=== PATIENT | female | born 1970 | race Two or more races ===

== ENCOUNTER 2020-04-19 18:13 | Emergency (ER) | payer SELFPAY ==
[~2020-04-19] VITALS: Ht 142.2 cm; Wt 48.5 kg
[2020-04-19] MEDS ORDERED: ONDANSETRON ODT4 MG BC (18:43)
[2020-04-19] MEDS ORDERED: OMEPRAZOLE20 M2 ORAL (18:43)
--- NOTE | 2020-04-19 18:44 | Emergency Room Report ---
History of Present Illness General Chief Complaint: Abdominal Pain Source: Patient Present Illness HPI 49-year-old female with no prior medical history presents with mid epigastric abdominal pain x8 days. Patient states that she went to her primary care doctor 7 days ago and was diagnosed with H Pylori gastritis and told to come to the emergency department in case of worsening symptoms. She is currently taking clarithromycin, flagyl, and bismuth with mild relief of symptoms. She still has another 3 days of pills. She denies dysuria, hematuria, fever, chills, vomiting, diarrhea, melena, hematochezia, rash, trauma or any other symptoms. Last p.o. intake was this morning. Last BM was this morning. She states that she feels "acid" in her throat if she lays down too much. The patient's symptoms were gradual onset, severity was moderate, duration since 8 days. Quality: Aching Past medical history: Denies Past surgical history: Denies Smoking: Denies Alcohol use: Denies Drug use: Denies Review of systems: CONST: No fevers or chills, No night sweats PULMONARY: No productive cough, No shortness of breath CARDIAC: No chest pain, No palpitations GI: No vomiting, No diarrhea , No melena_or_BRBPR : No dysuria, No hematuria, No discharge NEURO: No new_focal_weakness_or_numbness, No confusion, No vision changes 14 point Review of Systems is otherwise negative except per HPI Physical Exam: GENERAL: Awake_alert_ nontoxic, no acute distress Spo2 98% on RA -normal EYES: Extraocular muscles are intact. Conjunctivae clear. Lids without swelling ENT: External nose and ear normal_in_appearance. Oropharynx clear. Head_atraumatic, Moist_oral_mucosa NECK: No JVD. No meningismus. No thyromegaly. Supple. Trachea midline RESP: Normal respiratory effort. Symmetric rise. No stridor. Clear_to_ausc ultation_No_rales_No_wheezes CARDIAC: Regular rate and regular rhytm. No_significant pedal edema. ABDOMEN: Soft. Nondistended. Mild midepigastric tenderness to deep. No pulsatile mass. Palpation_No_rebound_or_guarding. Negative Luna sign. No CVA tenderness to palpation. Negative Rovsing's. MSK: Normal muscle tone, without rigidity. Extremities without asymmetric deformity or swelling. SKIN: Warm and dry. No visible cyanosis or pallor NEUROLOGIC: Alert, oriented x3. Motor_and_sensation_grossly_intact. No truncal ataxia. Gait_normal Psych: Normal mood and affect, normal judgment and insight - COORDINATION OF CARE Case was discussed with: Patient Any labs and imaging that were ordered were interpreted as part of the medical decision making: Medical Decision Making/Plan: Differential diagnosis includes PUD, gastritis, pancreatitis,pancreatitis, gastroparesis, gastritis, peptic ulcer disease, among others. DOUBT cholecystitis, choledocholithiasis, hepatitis, small bowel obstruction, volvulus, AAA, atypical appendicitis Patient is well appearing with stable vital signs. Abdominal exam is non peritoneal with no guarding or rebound. Negative Luna sign. No masses. No CVA tenderness to palpation. Labs show normal CBC, CMP, trop. UA is negative for evidence of UTI. Screening EKG shows NSR with no signs of active ischemia. Bedside ultrasound was performed. No evidence of acute cholecystitis. Negative Luna sign. Right kidney shows small renal cysts. No hydronephrosis. No kidney stone. Left kidney is within normal limits. No intra-abdominal free fluid visualized. Suspect peptic ulcer disease 2/2 H Pylori which she has not finished her full course of abx for. Differential includes gastroparesis versus gastritis. ED intervention included Zofran and GI cocktail with relief of symptoms. Recommended dietary changes and to not take her medications on an empty stomach. She verbalizes her understanding. She will follow up with her primary care doctor after she has finished her 10-day course of triple therapy. The patients symptoms are not consistent with ACS (acute coronary syndrome), symptoms are not exertional, EKG without obvious ischemic change. The patient denies any bloody stool and has no pain out of proportion to exam, and no significant risk factors for mesenteric ischemia such as atrial fibrillation or severe PAD/PVD (peripheral arterial / vascular disease), thus definitive workup to rule out mesenteric ischemia was not pursued. Patient is afebrile, without any significant tenderness in the RUQ, and a negative [place] sign. The patients presentation does not appear to be consistent with acute cholecystitis and thus definitive imaging to rule it out was not pursued. The patient has no significant risk factors for AAA (abdominal aortic aneurysm) such as age over 50 with history of hypertension, connective tissue disorder, or 1st degree relative with AAA. the patient has normal dorsalis pedis pulses, no radiation of pain to the back, and no pulsatile mass felt on exam. The patients profile was overall low risk for AAA and definitive workup was not pursued. Pertinent results reviewed with the patient. I educated the patient on the current treatment plan including the risks, benefits, and alternatives. I also discussed the extent and limitations of the current evaluation. The patient expressed understanding and agreement with plan. I recommended PMD follow-up within 1-2 days. Also advised that the patient return to the Emergency Department as soon as possible if they experience any new, persistent, or worsening symptoms. 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 pylori infection Peptic ulcer disease EKG Diagnostic Results Troponin ordered: Yes ADELITA Scribe Text 12-lead EKG (interpreted by me) Time: Normal sinus rhythm. Short NC interval.1854 Indication: Rhythm analysis Tracing visualized and Interpreted by me. Rhythm: Normal sinus rhythm Rate: 92 bpm QTc: 450 Morphology: No_significant_ST_elevations_or_depressions, No STEMI Impression: Normal_sinus_rhythm_without_significant_abnormality. Short NC interval Rhythm Strip Diag. Results Rhythm Strip Time: 18:42 EP Interpretation: yes Rate: 103 Rhythm: no PVC's, no ectopy - Sinus tachycardia Reevaluation Time: 19:50 Last Vital Signs Date Time Temp Pulse Resp B/P (MAP) Pulse Ox O2 Delivery O2 Flow Rate FiO2 04/19/20 18:28 98.8 103 16 138/80 (99) 94 Room Air Status: improved Disposition: HOME, SELF-CARE Admit Decision Time: 20:00 Condition: Stable Scripts Omeprazole (OMEPRAZOLE) 20 Mg Capsule. 20 MG ORAL DAILY for Gerd for 14 Days, #28 CAP Prov: Kim Noland D.O. 04/19/20 Ondansetron Odt* (ZOFRAN ODT*) 4 Mg Tab.rapdis 4 MG BC EVERY 6 HOURS PRN for Nausea & Vomiting, #10 TAB 0 Refills Prov: Kim Noland D.O. 04/19/20 Patient Instructions: Abdominal Pain, Adult, Food Choices for Peptic Ulcer Disease, Peptic Ulcer, [id number] Additional Instructions: Instructions for patient/vp [place]: Follow up with your physician in 1-2 days for repeat abdominal examination after you finish all of your triple therapy for H Pylori. Follow-up with your doctor sooner if your condition requires a more timely cli nical reevaluation. Return to the emergency department immediately if you feel that your condition is worsening or if you have any new or concerning symptoms. Review your discharge instructions and take any prescriptions given as instructed. [facility] PROVIDES FREE OR LOW-COST HEALTH SERVICES TO PEOPLE WHO CAN SHOW PROOF THAT THEY LIVE IN [place]. TO FIND MORE CLINICS PARTNERED WITH [facility] TO PROVIDE SERVICE, PLEASE CALL . Kim Noland D.O. Apr 19, 2020 18:44
[2020-04-19] MEDS ORDERED: Lidocaine 2% Visc 15ml soln ORAL ONE (18:45)
[2020-04-19 18:56] LABS: APPEARANCE,URINE CLEAR; BILIRUBIN, URINE NEGATIVE (NEGATIVE); COLOR,URINE PALE YELLOW; GLUCOSE, URINE (UA) NEGATIVE (NEGATIVE); KETONES,URINE NEGATIVE (NEGATIVE); NITRITE,URINE NEGATIVE (NEGATIVE); PH,URINE 6.5 (4.5-8.0); PROTEIN,URINE NEGATIVE (NEGATIVE); UROBILINOGEN,URINE NORMAL MG/DL (0.0-1.0)
[2020-04-19 19:03] VITALS: BP 130/62
[2020-04-19 19:07] LABS: BASOPHILS % (AUTO) 1.3 % (0.0-2.0); EOSINOPHILS % (AUTO) 0.8 % (0.0-3.0); HEMATOCRIT 44.1 % (37.0-47.0); HEMOGLOBIN 14.3 G/DL (12.0-16.0); LYMPHOCYTES % (AUTO) 38.3 % (20.0-45.0); MEAN CORPUSCULAR VOLUME 87 FL (80-99); MONOCYTES % (AUTO) 7.9 % (1.0-10.0); NEUTROPHILS % (AUTO) 51.7 % (45.0-75.0); PLATELET COUNT 346 K/UL (150-450); RED BLOOD COUNT 5.09 M/UL (4.20-5.40); RED CELL DISTRIBUTION WIDTH 12.5 % (11.6-14.8); WHITE BLOOD COUNT 6.2 K/UL (4.8-10.8)
[2020-04-19 19:11] LABS: LEUKOCYTE ESTERASE ,URINE NEGATIVE (NEGATIVE)
[2020-04-19 19:14] LABS: ANION GAP 11 mmol/L (5-15); BLOOD UREA NITROGEN 9 mg/dL (7-18); CALCIUM 9.5 MG/DL (8.5-10.1); CARBON DIOXIDE 26 MMOL/L (21-32); CHLORIDE 106 MMOL/L (98-107); CREATININE 0.7 MG/DL (0.55-1.30); POTASSIUM 4.1 MMOL/L (3.5-5.1); SODIUM 143 MMOL/L (136-145)
[2020-04-19 19:18] LABS: ALANINE AMINOTRANSFERASE 32 U/L (12-78); ALBUMIN/GLOBULIN RATIO 1.1 (1.0-2.7); ALKALINE PHOSPHATASE 114 U/L (46-116); ASPARTATE AMINO TRANSFERASE 26 U/L (15-37); BILIRUBIN,TOTAL 0.3 MG/DL (0.2-1.0)
--- NOTE | 2020-04-19 19:18 | NUR ---
ED Nurse Note: Received report from VENESSA Gillespie. Pt is resting, no new needs identified at this time. Assumed care of pt.
[2020-04-19 19:46] VITALS: BP 133/66
--- NOTE | 2020-04-19 19:48 | NUR ---
ED Nurse Note: Pt cleared by health care Provider for discharge. D/C instructions/prescription was given and explained to pt and pt verbalized understanding of teachings. All medical devices such as ID band removed. Pt is AAO x4, ambulatory and left with all personal belongings.
== END 2020-04-19 19:48 | disposition home or self-care (01) ==
LOC: EMR 18:43
DX: A04.8 Other specified bacterial intestinal infections (principal); K27.9 Peptic ulcer, site unspecified, unspecified as acute or chronic, without hemorrhage or perforation; R10.13 Epigastric pain
CPT/HCPCS: 36415; 80053; 81003; 83690; 84484; 84702; 85025; 93005; 99284